=== PATIENT | male | born 1970 | race Caucasian/White ===

== ENCOUNTER 2017-12-17 10:09 | Day surgery (SDC) | payer BC ==
[2017-12-14 08:20] LABS: BASOPHILS % (AUTO) 0.6 % (0.0-2.0); EOSINOPHILS # (AUTO) 0.1 K/uL (0.0-0.4); EOSINOPHILS % (AUTO) 1.9 % (0.0-4.0); HEMATOCRIT 49.1 % (36-54); HEMOGLOBIN 15.8 g/dL (14.0-18.0); LYMPHOCYTES # (AUTO) 1.6 K/uL (1.0-5.5); LYMPHOCYTES % (AUTO) 28.5 % (20.5-51.5); MEAN CORPUSCULAR HEMOGLOBIN 29 pg (27-31); MEAN CORPUSCULAR HGB CONC 32 % (32-36); MEAN CORPUSCULAR VOLUME 90 fL (79.0-98.0); MONOCYTES # (AUTO) 0.4 K/uL (0.0-1.0); MONOCYTES % (AUTO) 6.5 % (1.7-9.3); NEUTROPHILS # (AUTO) 3.5 K/uL (1.8-7.7); NEUTROPHILS % (AUTO) 62.5 % (40.0-70.0); PLATELET COUNT (AUTO) 255 K/uL (130-430); RED BLOOD CELL COUNT(AUTO) 5.44 MIL/uL (4.2-6.2); RED CELL DISTRIBUTION WIDTH 12.4 % (9.0-15.0); WHITE BLOOD COUNT (AUTO) 5.6 K/uL (4.8-10.8)
[2017-12-14 08:29] LABS: CALCIUM 9.2 mg/dL (8.4-11.0); CREATININE 1.12 mg/dL (0.55-1.30); POTASSIUM 3.8 mmol/L (3.5-5.1)
[2017-12-14 08:54] LABS: COLOR,URINE YELLOW (YELLOW)
[2017-12-14 08:55] LABS: BILIRUBIN,URINE NEGATIVE (NEGATIVE); BLOOD, URINE NEGATIVE (NEGATIVE); CLARITY/URINE CLEAR (CLEAR); GLUCOSE,URINE NEGATIVE (NEGATIVE); KETONES,URINE NEGATIVE (NEGATIVE); LEUKOCYTE ESTERASE ,URINE NEGATIVE (NEGATIVE); NITRITE, URINE NEGATIVE (NEGATIVE); PROTEIN URINE NEGATIVE (NEGATIVE); UROBILINOGEN,URINE 0.2 (0.2-1.0)
[~2017-12-17] VITALS: Ht 193 cm; Wt 122.5 kg
[~2017-12-17 10:09] MED LIST: AMOXICILLIN; CEFAZOLIN 1 GM IVPB PREMIX 50 ML IV ONE
[2017-12-17] MEDS ORDERED: ONDANSETRON HCL 4 MG/2 ML VIAL IVP ONE ×2 (12:00→12:08)
[2017-12-17] MEDS ORDERED: HYDROmorphone 1 MG INJ. 1 MG/ML AMPUL IVP PRN (12:00)
[2017-12-17] MEDS ORDERED: fentaNYL CITRATE/PF 100 MCG/2 ML AMP IVP PRN (12:00)
[2017-12-17] MEDS ORDERED: NALOXONE HCL 0.4 MG/ML AMP (NARCAN) IVP ONE (12:00)
[2017-12-17] MEDS ORDERED: MEPERIDINE HCL/PF 25 MG/ML DISP.SYRIN IVP PRN (12:00)
[2017-12-17] MEDS ORDERED: MIDAZOLAM HCL 5 MG/5 ML VIAL IVP PRN (12:00)
[2017-12-17] MEDS ORDERED: PROPOFOL 200MG/ 20ML VIAL (DIPRIVAN) IV ONE (12:08)
[2017-12-17] MEDS ORDERED: EPINEPHrine 1 MG/ML AMP IV ONE (12:08)
[2017-12-17] MEDS ORDERED: NS IRRIG SOLN 5000 ML IR ONE (12:08)
[2017-12-17] MEDS ORDERED: DEXAMETHASONE SOD PHOSPHATE 4 MG/ML VIAL IVP ONE (12:08)
[2017-12-17] MEDS ORDERED: CEFAZOLIN 2 GM IVPB PREMIX 50 ML IV ONE (12:08)
[2017-12-17] MEDS ORDERED: MORPHINE SULFATE 10MG/10ML PF AMP EP ONE (12:08)
[2017-12-17] MEDS ORDERED: MIDAZOLAM HCL 5 MG/ML VIAL (VERSED) IV ONE (12:08)
[2017-12-17] MEDS ORDERED: LR 1,000 ML IV.SOLN IV ONE (12:08)
[2017-12-17] MEDS ORDERED: SEVOFLURANE 15 MIN GAS INH ONE (12:08)
[2017-12-17] MEDS ORDERED: LIDOCAINE PF 1%, 20 MG/2 ML AMP INJ ONE (12:08)
[2017-12-17] MEDS ORDERED: KETOROLAC TROMETHAMINE 30 MG VIAL IVP ONE (12:08)
[2017-12-17] MEDS ORDERED: fentaNYL CITRATE 250 MCG/5 ML AMP IV ONE (12:08)
[2017-12-17] MEDS ORDERED: D5LR 1,000 ML IV SCH (12:11)
[2017-12-17] MEDS ORDERED: MORPHINE SULFATE 10 MG/ML VIAL IVP PRN (12:15)
[2017-12-17] MEDS ORDERED: DIPHENHYDRAMINE HCL 25 MG CAPSULE PO PRN (12:15)
[2017-12-17] MEDS ORDERED: ACETAMINOPHEN 325 MG TABLET PO PRN (12:15)
[2017-12-17] MEDS ORDERED: HYDROcodone/ACETAMIN 5-325 MG TAB (NORCO/ VICODIN) PO PRN (12:15)
[2017-12-17] MEDS ORDERED: MEPERIDINE HCL/PF 50 MG/ML AMP ONE (12:49)
[2017-12-17] MEDS ORDERED: ACETAMINOPHEN 325 MG TABLET ONE (14:00)
[2017-12-17 14:08] VITALS: BP_SYST 132
== END 2017-12-17 14:40 | disposition home or self-care (01) ==
LOC: SDS 10:09 → SMU 10:11 → SDS 14:40
PROVIDERS: ATTEND Orthopaedic Surgery
DX: M23.204 Derangement of unspecified medial meniscus due to old tear or injury, left knee (principal); M94.262 Chondromalacia, left knee; S83.512D Sprain of anterior cruciate ligament of left knee, subsequent encounter; X58.XXXD Exposure to other specified factors, subsequent encounter; M19.90 Unspecified osteoarthritis, unspecified site; Z68.35 Body mass index [BMI] 35.0-35.9, adult
CPT/HCPCS: 29881; 36415; 80048; 81003; 85025; 85610; 85730; J0171; J0690 ×2; J1100; J1885; J2001; J2175; J2250; J2274; J2405; J2704; J3010; J7120